=== PATIENT | male | born 1980 | race Caucasian/White ===

== ENCOUNTER 2023-01-03 22:57 | Emergency (ER) | payer SELFPAY ==
[~2023-01-03] VITALS: Ht 162.6 cm; Wt 63.0 kg
[2023-01-03 23:16] VITALS: BP 147/84; RESP 18; TEMP 99.1; O2SAT 100
[2023-01-03 23:20] VITALS: PULSE 52
[2023-01-04] MEDS ORDERED: BACITRACIN ZINC OINT UDPKT TOP ONE
[2023-01-04] MEDS ORDERED: TETANUS, DIPHTHERIA, PERTUSSIS VAC/PF 0.5ML (>10YR OLD) IM ONE
[2023-01-04] MEDS ORDERED: LIDOCAINE HCL/PF 1% 10 MG/ML 5ML VIAL INFIL ONE
[2023-01-04] MEDS ORDERED: ACETAMINOPHEN 325MG TABLET PO ONE
[2023-01-04] MEDS ORDERED: IBUP-2029 PO (02:05)
[2023-01-04] MEDS ORDERED: SILV20CR13 TP (02:05)
[2023-01-04] MEDS ORDERED: IBUPROFEN 600MG TABLET PO STA (02:48)
== END 2023-01-04 06:21 | disposition home or self-care (01) ==
LOC: ER 23:57
DX: S01.01XA Laceration without foreign body of scalp, initial encounter (principal); S20.219A Contusion of unspecified front wall of thorax, initial encounter; X58.XXXA Exposure to other specified factors, initial encounter; Y93.89 Activity, other specified; Y92.89 Other specified places as the place of occurrence of the external cause; Y99.8 Other external cause status
CPT/HCPCS: 71046; 99285; 70450; 90715; 90471; J3490; Z7610